=== PATIENT | female | born 1985 | race African-American/Black ===

== ENCOUNTER 2016-10-25 01:38 | Emergency (ER) | payer OTHER ==
[2016-10-25] MEDS ORDERED: ONDANSETRON 4 MG/2 ML VIAL IVP STA (01:51)
[2016-10-25] MEDS ORDERED: ONDANSETRON 4 MG/2 ML VIAL ONE (02:37)
[2016-10-25] MEDS ORDERED: KETOROLAC 60 MG/2 ML VIAL IVP STA (02:58)
[2016-10-25] MEDS ORDERED: KETOROLAC 30 MG/ML VIAL ONE (03:07)
== END 2016-10-25 03:57 | disposition home or self-care (01) ==
DX: N83.201 Unspecified ovarian cyst, right side (principal); J45.909 Unspecified asthma, uncomplicated

== ENCOUNTER 2017-08-30 09:38 | Emergency (ER) | payer OTHER ==
--- NOTE | 2017-08-30 12:01 | ED Physician Documentation ---
PD HPI CHEST PAIN - Stated complaint Stated Complaint: CHEST PAIN - Chief complaint Chief Complaint: Cardiac - History obtained from History obtained from: Patient, Friend - History of Present Illness Timing - onset: How many days ago (3) Timing - onset during: Light activity Timing - duration: Days (3) Timing - details: Abrupt onset, Still present PD PAST MEDICAL HISTORY - Past Medical History Past Medical History: Yes Respiratory: Asthma [employer]: Other - Past Surgical History Past Surgical History: Yes General: Cholecystectomy - Present Medications Home Medications: Ambulatory Orders Medication Instructions Recorded Confirmed Dexamethasone [Decadron] 4 mg PO DAILY #5 tablet 08/30/17 Doxycycline Monohydrate 100 mg PO BID #14 tablet 08/30/17 HYDROcod/ACETAM 5/325 [[place] 5/325] 1 tab PO Q6H PRN #15 tablet 08/30/17 Naproxen 375 mg PO BID #20 tablet 08/30/17 - Allergies Allergies/Adverse Reactions: Allergies Allergy/AdvReac Type Severity Reaction Status Date / Time iodine Allergy Anaphylaxis Verified 08/30/17 09:50 oxycodone AdvReac Severe agitation Verified 08/30/17 09:50 - Social History Does the pt smoke?: No Smoking Status: Never smoker Does the pt drink ETOH?: No Does the pt have substance abuse?: No - Immunizations Immunizations are current?: Yes - POLST Patient has POLST: No PD ED PE NORMAL - Vitals Vital signs reviewed: Yes - General General: Alert and oriented X 3, Well developed/nourished, Other (pain with movement and deep breathinf, right anterolateral chest. ) - HEENT HEENT: Atraumatic, Pharynx benign - Neck Neck: Supple, no meningeal sign, No adenopathy - Cardiac Cardiac: RRR, No murmur - Respiratory Respiratory: No respiratory distress, Clear bilaterally - Abdomen Abdomen: Normal bowel sounds, Soft, Non tender - Female Female : Deferred - Rectal Rectal: Deferred - Back Back: No CVA TTP - Derm Derm: No rash - Neuro Neuro: Alert and oriented X 3, No motor deficit (appears uncomfortable withmovementa and reahing.), Normal speech Results - Vitals Vitals: Oxygen O2 Source Room air - EKG (time done) 10:03 Rate: Rate (enter#) (61) Rhythm: NSR [place]: Normal Intervals: Normal MD QRS: Normal Other comments: Other comments - Rads (name of study) chest Radiology: Prelim report reviewed (no acute process) PD MEDICAL DECISION MAKING - ED course Complexity details: reviewed results, considered differential (low risk for PE. has had some mild cough. COnsider poeurisy. CXR is okay. ESR s good. ), d/w patient Departure - Departure Disposition: 01 Home, Self Care Clinical Impression: Right-sided chest pain, Pleurisy Condition: Stable Record reviewed to determine appropriate education?: Yes Instructions: ED Chest Pain Pleurisy Follow-Up: Alberto Harrison ARNP [Primary Care Provider] - Prescriptions: Dexamethasone [Decadron] 4 mg PO DAILY #5 tablet Doxycycline Monohydrate 100 mg PO BID #14 tablet HYDROcod/ACETAM 5/325 [[place] 5/325] 1 tab PO Q6H PRN #15 tablet PRN Reason: Pain Naproxen 375 mg PO BID #20 tablet Comments: The radiologist said there may be a very mild pneumonia starting on the right side. There is no signs of collapsed lung nor fluid around the lung. You do have a component that sounds like inflammation of the chest wall as well given hurting with movement and touching. We will treated with anti-inflammatories of naproxen and Decadron. Given the slight appearance of pneumonia on x-ray, will also add an antibiotic twice daily for a week. Add Tylenol or hydrocodone if needed for pain. Recheck if not improving in the next day or 2 or fully better over several days. Discharge Date/Time: 08/30/17 13:04
[2017-08-30] MEDS ORDERED: ACETAMINOPHEN 325 MG TABLET PO STA (12:14)
[2017-08-30] MEDS ORDERED: KETOROLAC 60 MG/2 ML VIAL IM STA (12:14)
--- NOTE | 2017-08-30 12:41 | XRAY Report ---
EXAM: CHEST RADIOGRAPHY EXAM DATE: 08/30/2017 12:27 PM. CLINICAL HISTORY: Chest pain right sided. COMPARISON: None. TECHNIQUE: 2 views. FINDINGS: Lungs/Pleura: Mild hazy right basilar opacities could reflect mild pneumonia. Left lung is clear. No pleural effusion or pneumothorax. Mediastinum: Heart and mediastinal contours are unremarkable. Other: None. IMPRESSION: 1. Possible mild right basilar pneumonia. [facility] Referring Provider Line: [phone] SITE ID: [id number]
[2017-08-30 12:52] VITALS: BP 118/85
== END 2017-08-30 13:04 | disposition home or self-care (01) ==
LOC: ED 09:38
DX: R07.9 Chest pain, unspecified (principal); R09.1 Pleurisy
CPT/HCPCS: 71046; 93005; 96372; 99283; 99284; A9270